=== PATIENT | female | born 1980 | race Two or more races ===

== ENCOUNTER 2020-09-07 17:21 | Emergency (ER) | payer SELFPAY ==
[2020-09-07] MEDS ORDERED: Cephalexin 500 MG Cap PO STA (17:27)
--- NOTE | 2020-09-07 17:31 | EDM.PDOC ---
ED HPI GENERAL MEDICAL PROBLEM - General Stated Complaint: TINGLING, WARMNESS IN ARM Time Seen by Provider: 09/07/20 17:25 Source of Information: Reports: Patient History Limitations: Reports: No Limitations - History of Present Illness INITIAL COMMENTS - FREE TEXT/NARRATIVE: Patient presented to the ED because of pain,swelling,redness over the left deltoid area. She had her Moderna Vaccine on the left deltoid area 4 days ago. There is no associated, fever,chills. Left Upper Arm Pain Score (Numeric/FACES): 7 - Related Data Allergies Allergy/AdvReac Type Severity Reaction Status Date / Time No Known Allergies Allergy Verified 09/07/20 17:37 Home Meds: Home Meds cephALEXin [Keflex] 500 mg PO Q8H #30 cap 09/07/20 [Rx] ED ROS GENERAL - Review of Systems Review Of Systems: See Below Constitutional: Reports: No Symptoms HEENT: Reports: No Symptoms Respiratory: Reports: No Symptoms Cardiovascular: Reports: No Symptoms Endocrine: Reports: No Symptoms GI/Abdominal: Reports: No Symptoms : Reports: No Symptoms Musculoskeletal: Reports: No Symptoms Skin: Reports: Erythema Neurological: Reports: No Symptoms ED EXAM, SKIN/RASH Exam: See Below Exam Limited By: No Limitations General Appearance: Alert, No Apparent Distress Ears: Normal External Exam, Normal Canal, Hearing Grossly Normal Nose: Normal Inspection, Normal Mucosa Throat/Mouth: Normal Inspection, Normal Lips, Normal Teeth Head: Atraumatic, Normocephalic Neck: Normal Inspection, Supple, Non-Tender, Full Range of Motion Respiratory/Chest: No Respiratory Distress, Lungs Clear, Normal Breath Sounds Cardiovascular: Normal Peripheral Pulses, Regular Rate, Rhythm, No Edema, No Gallop, No JVD, No Murmur, No Rub GI/Abdominal: Normal Bowel Sounds, Soft, Non-Tender, No Organomegaly Back Exam: Normal Inspection, Full Range of Motion Extremities: Normal Inspection, Normal Range of Motion, Non-Tender Neurological: Alert, Oriented, CN II-XII Intact Skin: Warm, Erythema Course - Vital Signs Text/Narrative:: Keflex 500 mg PO x1 Last Recorded V/S: Last Vital Signs Temp 36.6 C 09/07/20 17:21 Pulse 92 09/07/20 17:35 Resp 20 09/07/20 17:35 BP 172/96 H 09/07/20 17:35 Pulse Ox 96 06/17/21 17:35 - Orders/Labs/Meds Meds: Medications Discontinued Medications Generic Name Dose Route Start Last Admin Trade Name Yeimy PRN Reason Stop Dose Admin Cephalexin 500 mg 09/07/20 17:27 09/07/20 17:36 Cephalexin 500 Mg Cap PO 09/07/20 17:28 500 mg NOW STA Administration Departure - Departure Time of Disposition: 17:35 Disposition: Home, Self-Care 01 Condition: Good Clinical Impression: Cellulitis - Discharge Information Prescriptions: cephALEXin [Keflex] 500 mg PO Q8H #30 cap Instructions: Cellulitis, Adult, [id number] Referrals: PCP,None [Primary Care Provider] - Forms: ED Department Discharge Additional Instructions: Please read discharge instructions on cellulitis Apply warm compress Take keflex 500 mg 3 times daily with kelsey until gone Follow up as needed
== END 2020-09-07 17:40 | disposition home or self-care (01) ==
LOC: FB.ED 17:21
DX: L03.114 Cellulitis of left upper limb (principal)
CPT/HCPCS: 99283; A9270-GY

== ENCOUNTER 2020-11-23 22:08 | Emergency (ER) | payer SELFPAY ==
--- NOTE | 2020-11-23 23:18 | EDM.PDOC ---
ED HPI GENERAL MEDICAL PROBLEM - General Stated Complaint: SORE THROAT Time Seen by Provider: 11/23/20 23:15 Source of Information: Reports: Patient History Limitations: Reports: No Limitations - History of Present Illness INITIAL COMMENTS - FREE TEXT/NARRATIVE: 39-year-old female onset of sore throat, nasal congestion and cough at 8 AM yesterday. She awoke with the symptoms. Symptoms have been persistent since then and the pain has worsened over time. The pain is now 7/10. She is able to swallow. She denies any shortness of breath but has had to use her inhaler more frequently for wheezing and shortness of breath. She has had no nausea or vomiting. She reports she has been eating and drinking normally and she has tolerated this well. No fevers. The pain is worse with swallowing. The patient is also worse with cough. Her no other associated signs or symptoms. There are no other modifying factors. 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.) Generalized Pain Score (Numeric/FACES): 6 - Related Data Allergies Allergy/AdvReac Type Severity Reaction Status Date / Time No Known Allergies Allergy Verified 09/07/20 17:37 Home Meds: Home Meds cephALEXin [Keflex] 500 mg PO Q8H #30 cap 09/07/20 [Rx] Past Medical History Respiratory History: Reports: Asthma Dermatologic History: Reports: Cellulitis - Past Surgical History GI Surgical History: Reports: Cholecystectomy Social & Family History - Tobacco Use Tobacco Use Status *Q: Current Every Day Tobacco User - Caffeine Use Caffeine Use: Reports: None - Alcohol Use Alcohol Use History: No - Living Situation & Occupation Living situation: Reports: with Significant Other Occupation: Employed ED ROS ENT - Review of Systems Review Of Systems: See Below Constitutional: Denies: Fever, Chills HEENT: Denies: Glasses, Throat Pain, Throat Swelling Respiratory: Reports: Shortness of Breath, Cough Cardiovascular: Denies: Chest Pain, Dyspnea on Exertion, Lightheadedness, Palpitations GI/Abdominal: Denies: Abdominal Pain, Nausea, Vomiting : Denies: Dysuria, Hematuria Musculoskeletal: Denies: Shoulder Pain, Back Pain Skin: Denies: Rash, Wound Neurological: Denies: Confusion, Headache Immunologic: Reports: Other (Patient is immunized against Covid Moderna vaccine) ED EXAM, ENT - Physical Exam Exam: See Below Exam Limited By: No Limitations General Appearance: Alert, WD/WN, No Apparent Distress Eye Exam: Bilateral Eye: EOMI, Normal Inspection Ears: Normal External Exam, Hearing Grossly Normal Nose: Nasal Discharge Mouth/Throat: Pharyngeal Erythema, Throat Pain, Tonsillar Erythema, Tonsillar Swelling. No: Peritonsillar Mass Head: Atraumatic, Normocephalic Neck: Supple, Non-Tender, Lymphadenopathy (R), Lymphadenopathy (L), Tender Lateral Respiratory/Chest: No Respiratory Distress, Lungs Clear, Normal Breath Sounds, No Accessory Muscle Use, Chest Non-Tender Cardiovascular: Normal Peripheral Pulses, Regular Rate, Rhythm GI/Abdominal: Normal Bowel Sounds, Soft, Non-Tender, No Mass Back: Normal Inspection, Full Range of Motion, CVA Tenderness (R) Extremities: Normal Inspection, Normal Range of Motion, Non-Tender, No Pedal Edema, Normal Capillary Refill Neurological: Alert, Oriented, CN II-XII Intact, Normal Cognition, No Motor/Sensory Deficits Psychiatric: Normal Affect Skin: Warm, Dry, Intact, Normal Color, No Rash Course - Vital Signs Last Recorded V/S: Last Vital Signs Temp 36.5 C 11/23/20 23:00 Pulse 99 11/23/20 23:00 Resp 18 11/23/20 23:00 BP 159/98 H 11/23/20 23:00 Pulse Ox 96 11/23/20 23:00 - Orders/Labs/Meds Labs: Laboratory Tests 11/23/20 Range/Units 22:50 SARS-CoV-2 RNA (SHER) Negative (NEGATIVE) Group A Strep (PCR) Not detected (NOT DETECT) - Re-Assessments/Exams Free Text/Narrative Re-Assessment/Exam: 11/24/20 00:10: Both rapid strep and Covid tests are negative. She appears to have a viral pharyngitis. Treatment for this would be supportive/symptomatic. She should increase her fluid intake. She can take ibuprofen and Tylenol as needed for pain. She is stable for discharge at this point. I discussed this with the patient and she feels relieved. She did not feel that she needed a work note. Departure - Departure Time of Disposition: 00:18 Disposition: Home, Self-Care 01 Condition: Good Clinical Impression: Pharyngitis Qualifiers: Pharyngitis/tonsillitis etiology: unspecified etiology Qualified Code(s): J02.9 - Acute pharyngitis, unspecified URI (upper respiratory infection) Qualifiers: URI type: unspecified URI Qualified Code(s): J06.9 - Acute upper respiratory infection, unspecified - Discharge Information Instructions: Viral Respiratory Infection, [id number], Pharyngitis, [id number] Referrals: PCP,None [Primary Care Provider] - Forms: ED Department Discharge Additional Instructions: Your strep screen was negative. Your Covid test was negative. You appear to have a viral respiratory infection. There is no specific treatment for this. You can take Tylenol and ibuprofen as needed for pain. You should use [id number] throat lozenges for treatment of your throat discomfort. You need to increase your fluid intake. Follow-up with your primary provider as needed. Back to the emergency department for difficulty breathing, unrelenting vomiting or any other concerning signs or symptoms. Sepsis Event Note (ED) - Focused Exam Vital Signs: Vital Signs Temp Pulse Resp BP Pulse Ox 11/23/20 23:00 36.5 C 99 18 159/98 H 96
[2020-11-24 00:08] LABS: CORONAVIRUS COVID-19 NAA NEGATIVE (NEGATIVE); STREP A BY PCR NOT DETECTED (NOT DETECT)
== END 2020-11-24 00:25 | disposition home or self-care (01) ==
LOC: FB.ED 22:08
DX: J02.9 Acute pharyngitis, unspecified (principal); Z72.0 Tobacco use; Z20.822 Contact with and (suspected) exposure to COVID-19
CPT/HCPCS: 87651-QW; 99283; U0002

== ENCOUNTER 2020-11-28 22:45 | Emergency (ER) | payer SELFPAY ==
[2020-11-29] MEDS ORDERED: Albuterol/Ipratropium 3.0-0.5 MG/3 ML Neb Soln NEB STA (00:15)
[2020-11-29] MEDS ORDERED: Azithromycin 250 MG Tab PO STA (00:15)
[2020-11-29] MEDS ORDERED: Codeine/guaiFENesin 10-100 MG/5 ML Syrup 5 ML Cup PO STA (00:17)
--- NOTE | 2020-11-29 00:23 | EDM.PDOC ---
ED HPI GENERAL MEDICAL PROBLEM - General Chief Complaint: General Stated Complaint: COLD Time Seen by Provider: 11/28/20 23:15 Source of Information: Reports: Patient History Limitations: Reports: No Limitations - History of Present Illness INITIAL COMMENTS - FREE TEXT/NARRATIVE: Patient presented to the ED because of cough and cold for 1 week. The cough is productive of yellowish phlegm with associated wheezing, dyspnea and pleuritic pain. She was tested for Covid 3 days ago which was negative. 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 - Related Data Allergies Allergy/AdvReac Type Severity Reaction Status Date / Time No Known Allergies Allergy Verified 09/07/20 17:37 Home Meds: Home Meds Albuterol Sulfate [Albuterol Sulfate Hfa] 2 puff IH Q4H PRN #1 hfa.aer.ad 11/29/20 [Rx] Azithromycin [Zithromax] 500 mg PO DAILY #5 tab 11/29/20 [Rx] Codeine/guaiFENesin [guaiFENesin-Codeine Syrup] 10 ml PO Q4H PRN #120 ml 11/29/20 [Rx] Past Medical History - Past Health History Medical/Surgical History: Denies Medical/Surgical History Respiratory History: Reports: Asthma Dermatologic History: Reports: Cellulitis - Past Surgical History GI Surgical History: Reports: Cholecystectomy Social & Family History - Family History Family Medical History: No Pertinent Family History - Tobacco Use Tobacco Use Status *Q: Current Every Day Tobacco User Years of Tobacco use: 20 Packs/Tins Daily: 1 - Caffeine Use Caffeine Use: Reports: None - Recreational Drug Use Recreational Drug Use: No - Living Situation & Occupation Living situation: Reports: with Significant Other Occupation: Employed ED ROS GENERAL - Review of Systems Review Of Systems: See Below Constitutional: Reports: No Symptoms HEENT: Reports: No Symptoms Respiratory: Reports: Shortness of Breath, Wheezing, Cough Cardiovascular: Reports: No Symptoms Endocrine: Reports: No Symptoms GI/Abdominal: Reports: No Symptoms : Reports: No Symptoms Musculoskeletal: Reports: No Symptoms Skin: Reports: No Symptoms Neurological: Reports: No Symptoms ED EXAM, GENERAL - Physical Exam Exam: See Below Exam Limited By: No Limitations General Appearance: Alert, No Apparent Distress Ears: Normal External Exam, Normal Canal Nose: Normal Inspection, Normal Mucosa, No Blood Throat/Mouth: Normal Inspection, Normal Lips, Normal Teeth, Normal Gums Head: Atraumatic, Normocephalic Neck: Normal Inspection, Supple, Non-Tender, Full Range of Motion Respiratory/Chest: No Respiratory Distress, Lungs Clear, Normal Breath Sounds, Wheezing Cardiovascular: Normal Peripheral Pulses, Regular Rate, Rhythm, No Edema, No Gallop GI/Abdominal: Normal Bowel Sounds, Soft, Non-Tender, No Organomegaly Back Exam: Normal Inspection, Full Range of Motion Extremities: Normal Inspection, Normal Range of Motion, Non-Tender, No Pedal Edema, Normal Capillary Refill Neurological: Alert, Oriented, CN II-XII Intact Course - Vital Signs Text/Narrative:: Robitussin AC 10 ml PO x1 Zithromax 500 mg PO x1 Duoneb x1 Last Recorded V/S: Last Vital Signs Temp 36.4 C 11/28/20 23:00 Pulse 94 11/29/20 00:32 Resp 18 11/28/20 23:00 BP 156/95 H 11/28/20 23:00 Pulse Ox 98 11/28/20 23:00 - Orders/Labs/Meds Meds: Medications Discontinued Medications Generic Name Dose Route Start Last Admin Trade Name Freq PRN Reason Stop Dose Admin Albuterol/Ipratropium 3 ml 11/29/20 00:15 11/29/20 00:31 Albuterol/Ipratropium 3.0-0.5 Mg/3 Ml Neb Soln NEB 11/29/20 00:16 3 ml NOW STA Administration Azithromycin 500 mg 11/29/20 00:15 11/29/20 00:31 Azithromycin 250 Mg Tab PO 11/29/20 00:16 500 mg NOW STA Administration Guaifenesin/Codeine Phosphate 10 ml 11/29/20 00:17 11/29/20 00:31 Codeine/Guaifenesin 10-100 Mg/5 Ml Syrup 5 Ml Cup PO 11/29/20 00:18 10 ml NOW STA Administration Departure - Departure Time of Disposition: 12:30 Disposition: Home, Self-Care 01 Condition: Good Clinical Impression: Acute bronchitis - Discharge Information Prescriptions: Albuterol Sulfate [Albuterol Sulfate Hfa] 2 puff IH Q4H PRN #1 hfa.aer.ad PRN Reason: dyspnea/wheezing Codeine/guaiFENesin [guaiFENesin-Codeine Syrup] 10 ml PO Q4H PRN #120 ml PRN Reason: Cough Azithromycin [Zithromax] 500 mg PO DAILY #5 tab Instructions: Chronic Bronchitis, Adult Referrals: PCP,None [Primary Care Provider] - Forms: ED Department Discharge Additional Instructions: Please read discharge instructions on acute bronchitis Increase oral fluids Albuterol inhaler, 2 puffs every 4-6 hours as needed for shortness of breath Zithromax 500 mg daily for 5 days starting tomorrow Robitussin AC, 10 ml every 4-6 hours as needed for cough Follow up as needed Sepsis Event Note (ED) - Evaluation Sepsis Screening Result: No Definite Risk - Focused Exam Vital Signs: Vital Signs Temp Pulse Resp BP Pulse Ox 11/29/20 00:32 94 11/28/20 23:00 36.4 C 94 18 156/95 H 98
== END 2020-11-29 00:45 | disposition home or self-care (01) ==
LOC: FB.ED 22:45
DX: J20.9 Acute bronchitis, unspecified (principal); Z72.0 Tobacco use
CPT/HCPCS: 94640; 99283; A9270; J7620-GY

== ENCOUNTER 2020-12-12 20:35 | Emergency (ER) | payer SELFPAY ==
[2020-12-12] MEDS ORDERED: Cyclobenzaprine 10 MG Tab PO STA (21:28)
[2020-12-12] MEDS ORDERED: Ketorolac 30 MG/ML SDV IM STA (21:28)
[2020-12-12] MEDS ORDERED: traMADol 50 MG Tab PO STA (21:28)
--- NOTE | 2020-12-12 21:47 | EDM.PDOC ---
ED HPI GENERAL MEDICAL PROBLEM - General Stated Complaint: SHOULDER PAIN Time Seen by Provider: 12/12/20 21:20 Source of Information: Reports: Patient History Limitations: Reports: No Limitations - History of Present Illness INITIAL COMMENTS - FREE TEXT/NARRATIVE: Patient presented to the ED because of a left shoulder pain over the AC joint area and scapular area. There is no recent trauma or injury but she thought it's related to her work. Left Shoulder Pain Score (Numeric/FACES): 10 - Related Data Allergies Allergy/AdvReac Type Severity Reaction Status Date / Time No Known Allergies Allergy Verified 09/07/20 17:37 Home Meds: Home Meds Cyclobenzaprine [Flexeril] 10 mg PO TID PRN #15 tab 12/12/20 [Rx] Ibuprofen 800 mg PO TID PRN #30 tablet 12/12/20 [Rx] Past Medical History - Past Health History Medical/Surgical History: Denies Medical/Surgical History Respiratory History: Reports: Asthma Dermatologic History: Reports: Cellulitis - Past Surgical History GI Surgical History: Reports: Cholecystectomy Social & Family History - Family History Family Medical History: No Pertinent Family History - Caffeine Use Caffeine Use: Reports: None - Living Situation & Occupation Living situation: Reports: with Significant Other Occupation: Employed ED ROS GENERAL - Review of Systems Review Of Systems: See Below Constitutional: Reports: No Symptoms HEENT: Reports: No Symptoms Respiratory: Reports: No Symptoms Cardiovascular: Reports: No Symptoms Endocrine: Reports: No Symptoms GI/Abdominal: Reports: No Symptoms : Reports: No Symptoms Musculoskeletal: Reports: Shoulder Pain Skin: Reports: No Symptoms Neurological: Reports: No Symptoms Psychiatric: Reports: No Symptoms Hematologic/Lymphatic: Reports: No Symptoms ED EXAM, UPPER BACK/NECK PAIN - Physical Exam Exam: See Below Exam Limited By: No Limitations General Appearance: Alert, No Apparent Distress Eye Exam: Bilateral Eye: PERRL Ears Exam: Normal External Exam, Normal Canal Throat/Mouth Exam: Normal Inspection, Normal Lips, Normal Teeth, Normal Gums Head Exam: Atraumatic, Normocephalic Neck Exam: Non-Tender, Full Range of Motion, Normal Alignment, Normal Inspection Nexus Criteria: Posterior, Midline Cervical Tenderness, Evidence of Intoxication Cardiovascular/Respiratory: Regular Rate, Rhythm, No M/R/G, Normal Peripheral Pulses, No JVD GI/Abdominal: Normal Bowel Sounds, Soft, Non-Tender, No Organomegaly Rectal (Female) Exam: Normal Exam, Normal Rectal Tone, Deferred, Black Stool Back Exam: Normal Inspection, Full Range of Motion Extremities: Normal Inspection, Other (Rt AC joint tenderness) 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, No Motor/Sensory Deficits, Alert, Normal Mood/Affect, Oriented x 3 Course - Vital Signs Text/Narrative:: Toradol 60 mg IM x1 Flexeril 10 mg PO x1 Tramadol 100 mg PO x1 Last Recorded V/S: Last Vital Signs Temp 36.6 C 12/12/20 21:14 Pulse 92 12/12/20 21:14 Resp 18 12/12/20 21:14 BP 183/107 H 12/12/20 21:14 Pulse Ox 98 12/12/20 21:14 - Orders/Labs/Meds Meds: Medications Discontinued Medications Generic Name Dose Route Start Last Admin Trade Name Freq PRN Reason Stop Dose Admin Cyclobenzaprine HCl 10 mg 12/12/20 21:28 12/12/20 21:37 Cyclobenzaprine 10 Mg Tab PO 12/12/20 21:29 10 mg NOW STA Administration Ketorolac Tromethamine 60 mg 12/12/20 21:28 12/12/20 21:38 Ketorolac 30 Mg/Ml Sdv IM 12/12/20 21:29 60 mg NOW STA Administration Tramadol HCl 100 mg 12/12/20 21:28 12/12/20 21:37 Tramadol 50 Mg Tab PO 12/12/20 21:29 100 mg NOW STA Administration Departure - Departure Time of Disposition: 22:00 Disposition: Home, Self-Care 01 Condition: Good Clinical Impression: Left shoulder strain - Discharge Information Prescriptions: Cyclobenzaprine [Flexeril] 10 mg PO TID PRN #15 tab PRN Reason: Spasms Ibuprofen 800 mg PO TID PRN #30 tablet PRN Reason: Pain Instructions: Muscle Strain, [id number] Referrals: PCP,None [Primary Care Provider] - Forms: ED Department Discharge Additional Instructions: Please read discharge instructions on muscle strain Apply ice or heat whichever makes it feel better Take all the following medications at the same time: Flexeril 10mg,ibuprofen 800 mg, tylenol 1000 mg every 8 hours as needed for pain Follow up as needed Sepsis Event Note (ED) - Evaluation Sepsis Screening Result: No Definite Risk
== END 2020-12-12 22:00 | disposition home or self-care (01) ==
LOC: FB.ED 20:35
DX: S46.912A Strain of unspecified muscle, fascia and tendon at shoulder and upper arm level, left arm, initial encounter (principal); X58.XXXA Exposure to other specified factors, initial encounter
CPT/HCPCS: 96372; 99283; A9270-GY; J1885

== ENCOUNTER 2024-02-17 17:35 | Emergency (ER) | payer BC ==
[2024-02-17 18:46] LABS: BILIRUBIN,URINE NEGATIVE (NEGATIVE); GLUCOSE,URINE NORMAL (NORMAL); KETONES,URINE NEGATIVE (NEGATIVE); LEUKOCYTE ESTERASE,URINE SMALL (NEGATIVE); NITRITE,URINE NEGATIVE (NEGATIVE); OCCULT BLOOD,URINE LARGE (NEGATIVE); PROTEIN,URINE 30 mg/dL (NEGATIVE); UROBILINOGEN,URINE NORMAL (NEGATIVE)
[2024-02-17 18:52] LABS: APPEARANCE,URINE CLOUDY (CLEAR); COLOR,URINE BROWN (YELLOW)
[2024-02-17 18:53] LABS: BACTERIA,URINE MODERATE (NS); RBC,URINE >100 (0-5); SQUAMOUS EPITHELIAL CELLS,UR FEW (NS,R,O)
[2024-02-17] MEDS: Sulfamethoxazole/Trimethoprim 800-160 MG Tab PO ONE (19:32)
== END 2024-02-17 19:37 | disposition home or self-care (01) ==
LOC: FB.ED 17:35
DX: N30.01 Acute cystitis with hematuria (principal); J45.909 Unspecified asthma, uncomplicated; F17.210 Nicotine dependence, cigarettes, uncomplicated; Z90.49 Acquired absence of other specified parts of digestive tract; Z79.899 Other long term (current) drug therapy
CPT/HCPCS: 81001; 87086; 99283; 99284; A9270-GY

== ENCOUNTER 2024-11-23 15:41 | Emergency (ER) | payer BC ==
[2024-11-23 16:32] LABS: GLUCOSE,URINE NORMAL (NORMAL); OCCULT BLOOD,URINE MODERATE (NEGATIVE)
[2024-11-23 16:33] LABS: APPEARANCE,URINE SLIGHTLY CLOUDY (CLEAR)
[2024-11-23 16:34] LABS: SQUAMOUS EPITHELIAL CELLS,UR FEW (NS,R,O)
== END 2024-11-23 17:20 | disposition home or self-care (01) ==
LOC: FB.ED 15:41
DX: J06.9 Acute upper respiratory infection, unspecified (principal); N39.0 Urinary tract infection, site not specified; Z79.899 Other long term (current) drug therapy
CPT/HCPCS: 81001; 87086; 87088; 87186; 87426-QW; 87651; 99283